=== PATIENT | female | born 1995 | race Two or more races ===

== ENCOUNTER 2019-12-16 17:25 | Emergency (ER) | payer SELFPAY ==
[~2019-12-16] VITALS: Ht 160 cm; Wt 70.0 kg
[2019-12-16 17:57] VITALS: BP 127/63
--- NOTE | 2019-12-16 18:21 | PHYS DOC ---
General Adult EDM: Chief Complaint: HEARTBURN/GI DISTRESS HPI: HPI: Patient is a 24 year old female who presents with patient states for the last 2 months off-and-on she has had a headache and burning in her upper chest up into her throat. She states that she is not taking any medications or anything to help treat the symptoms. She states that 2 months ago she cleaned her bathroom with Clorox and since then she is had the symptoms off and on. Patient denies nausea, abdominal pain, fever, cough, chest pain, shortness of air, vomiting, diarrhea, dizziness. She currently rates her discomfort at a 4 out of 10. Patient also complains of a bitter taste in her mouth. She states that she got on the Internet it started looking up her symptoms and was afraid she had COVID and she is worried about her children at home. She states she does not work but her does. She states that her has not been around anybody that she knows of that has COVID. She has 2 live children and has no other past medical history. (AISLINN CANTRELL APRN) Review of Systems: Review of Systems: Constitutional: Denies fever or chills. [] Eyes: Denies change in visual acuity. [] HENT: Denies nasal congestion. burning throat. Bitter taste in the mouth.[] Respiratory: Denies cough or shortness of breath. [] Cardiovascular: Denies chest pain or edema. [] GI: Denies abdominal pain, nausea, vomiting, bloody stools or diarrhea. [] : Denies dysuria. [] Musculoskeletal: Denies back pain or joint pain. [] Integument: Denies rash. [] Neurologic: Intermittent headache, denies focal weakness or sensory changes. [] Endocrine: Denies polyuria or polydipsia. [] Lymphatic: Denies swollen glands. [] Psychiatric: Denies depression or anxiety. [] (AISLINN CANTRELL APRN) Heart Score: Risk Factors: Risk Factors: DM, Current or recent (<one month) smoker, HTN, HLP, family history of CAD, obesity. Risk Scores: Score 0 - 3: 2.5% MACE over next 6 weeks - Discharge Home Score 4 - 6: 20.3% MACE over next 6 weeks - Admit for Clinical Observation Score 7 - 10: 72.7% MACE over next 6 weeks - Early Invasive Strategies (AISLINN CANTRELL APRN) Allergies: Allergies: Allergies Coded Allergies Type Severity Reaction Last Updated Verified No Known Drug Allergies 12/16/19 No (AISLINN CANTRELL APRN) Physical Exam: PE: Constitutional: Well developed, well nourished, no acute distress, non-toxic appearance. [] HENT: Normocephalic, atraumatic, bilateral external ears normal, oropharynx moist, no oral exudates, nose normal. [] Eyes: PERRLA, EOMI, conjunctiva normal, no discharge. [] Neck: Normal range of motion, no tenderness, supple, no stridor. [] Cardiovascular:Heart rate regular rhythm, no murmur [] Lungs & Thorax: Bilateral breath sounds clear to auscultation [] Abdomen: Bowel sounds normal, soft, no tenderness, no masses, no pulsatile masses. [] Skin: Warm, dry, no erythema, no rash. [] Back: No tenderness, no CVA tenderness. [] Extremities: No tenderness, no cyanosis, no clubbing, ROM intact, no edema. [] Neurologic: Alert and oriented X 3, normal motor function, normal sensory function, no focal deficits noted. [] Psychologic: Affect normal, judgement normal, mood normal. Normal Physical Findings[] (AISLINN CANTRELL APRN) EKG: EKG: [] (AISLINN CANTRELL APRN) Radiology/Procedures: Radiology/Procedures: [] Impression: [facility] [address] [place], [place] [id number] IMAGING REPORT Signed PATIENT: RITA NIACCOUNT: [id number] : 1995 LOCATION: ER AGE: 24 SEX: F EXAM STATUS: REG ER ORD. PHYSICIAN: AISLINN CANTRELL APRN REASON: upper GI symptoms PROCEDURE: PORTABLE CHEST 1V PORTABLE CHEST 1V 12/16/2019 6:16 PM INDICATION: Upper GI symptoms COMPARISON: None available TECHNIQUE: Portable frontal view of the chest is provided. FINDINGS: The cardiomediastinal silhouette is within normal limits. Lungs are clear. There are no significant pleural effusions. There is no pulmonary vascular congestion. No pneumothorax. No suspicious osseous abnormality. IMPRESSION: There is no acute cardiopulmonary process. Electronically signed by: Lina Pizarro MD (12/16/2019 6:47 PM) [facility] DICTATED and SIGNED BY: LINA PIZARRO MD DATE: 12/16/191846 (AISLINN CANTRELL APRN) Course & Med Decision Making: Course & Med Decision Making Pertinent Labs and Imaging studies reviewed. (See chart for details) Throat is pink without exudates or swelling. Afebrile. Alert and oriented. Ambulatory with a steady gait. Skin pink warm and dry. Abdomen is soft and nontender. Uvula midline. No swelling in the mouth. Chest xray read as no acute findigns by Dr Silverman. [] (AISLINN CANTRELL APRN) Course & Med Decision Making Staff Physician Addendum: I was working in the ER during the course of this patient's visit. I was available for consultation as needed, but I was not directly involved in the care of this patient. (LAUREN SILVERMAN MD) Dragon Disclaimer: Dragon Disclaimer: This electronic medical record was generated, in whole or in part, using a voice recognition dictation system. (AISLINN CANTRELL APRN) Departure Departure Impression: Primary Impression: GERD (gastroesophageal reflux disease) Qualified Codes: K21.9 - Gastro-esophageal reflux disease without esophagitis Disposition: HOME, SELF-CARE Condition: STABLE Referrals: NO PCP (PCP) Patient Instructions: Diet for Gastroesophageal Reflux Disease, Adult Additional Instructions: Follow up with primary care provider if needed. Take medication as prescribed. Youcan go to [facility] or health department for COVID testing. Scripts Famotidine (PEPCID) 20 Mg Tablet 20 MG PO BID, #30 TAB Prov: AISLINN CANTRELL APRN 12/16/19 Justicifation of Admission Dx: Justifications for Admission: Justification of Admission Dx: N/A (AISLINN CANTRELL APRN) AISLINN CANTRELL APRN Dec 16, 2019 18:21 LAUREN SILVERMAN MD Dec 16, 2019 19:21
[2019-12-16] MEDS ORDERED: LIDO:MAALOX 1:1 20 ML SINGLE DOSE. SWSW ONE (18:30)
--- NOTE | 2019-12-16 18:50 | RAD ---
PORTABLE CHEST 1V 12/16/2019 6:16 PM INDICATION: Upper GI symptoms COMPARISON: None available TECHNIQUE: Portable frontal view of the chest is provided. FINDINGS: The cardiomediastinal silhouette is within normal limits. Lungs are clear. There are no significant pleural effusions. There is no pulmonary vascular congestion. No pneumothorax. No suspicious osseous abnormality. IMPRESSION: There is no acute cardiopulmonary process. Electronically signed by: Jasmyn Hernandez MD (12/16/2019 6:47 PM) [facility]
[2019-12-16] MEDS ORDERED: FAMO-63 PO (18:53)
== END 2019-12-16 19:01 | disposition home or self-care (01) ==
LOC: ER 17:25
DX: K21.9 Gastro-esophageal reflux disease without esophagitis (principal); R07.89 Other chest pain; R51 Headache
CPT/HCPCS: 71045; 99283